=== PATIENT | female | born 1995 | race Two or more races ===

== ENCOUNTER 2019-10-25 15:38 | Observation (INO) | payer MEDICAID ==
[~2019-10-25] VITALS: Ht 162.6 cm; Wt 99.8 kg
[2019-10-25 17:03] LABS: CLARITY URINE CLOUDY (CLEAR); COLOR URINE DARK YELLOW (YELLOW); KETONES URINE TRACE (NEGATIVE); LEUKOCYTE ESTERASE URINE TRACE (NEGATIVE); NITRITE URINE POSITIVE (NEGATIVE); OCCULT BLOOD URINE NEGATIVE (NEGATIVE); PROTEIN URINE TRACE (NEGATIVE); SPECIFIC GRAVITY URINE 1.029 (1.005-1.030)
== END 2019-10-25 19:15 | disposition home or self-care (01) ==
LOC: 8 EST LDRP 15:38
PROVIDERS: ADMIT Obstetrics & Gynecology; ATTEND Obstetrics & Gynecology
DX: O62.9 Abnormality of forces of labor, unspecified (principal); Z3A.38 38 weeks gestation of pregnancy; Z98.891 History of uterine scar from previous surgery
CPT/HCPCS: 76805; 76818; 81003; 99281; G0378